=== PATIENT | male | born 1960 | race Caucasian/White ===

== ENCOUNTER 2017-08-19 17:23 | Emergency (ER) | payer BC ==
[2017-08-19 17:37] VITALS: BP 113/73
[2017-08-19] MEDS ORDERED: Lidocaine 1% MPF* 2 ML VIAL INJ ONE (17:45)
--- NOTE | 2017-08-19 17:45 | UC ---
Head Injury HPI - HPI Summary HPI Summary: 57 y/o male presents to the urgent care c/o laceration on top of his head w/ a pry bar that landed on his head at 1430pm today. Pt reports he left the pry bar on top of a ladder and when he move it the pry bar fell on top of his head, abut 4 feet high. Pt denies LOC, SWENSON or dizziness. bleeding stopped w/ pressure, Pain is 2/10. Pt is UTD w/ his Tetanus vaccine. Pt denies fever, SOB, chest pain, abdominal pain, N/V/D. - History Of Current Complaint Chief Complaint: UCLaceration Stated Complaint: HEAD INJURY Time Seen by Provider: 08/19/17 17:31 Hx Obtained From: Patient Onset/Duration: Sudden Onset, Lasting Hours - 3hrs ago Severity Currently: Mild Severity Initially: Moderate Pain Intensity: 2 Pain Scale Used: 0-10 Numeric Character: Sharp Aggravating Factor(s): Other - touch Alleviating Factor(s): Nothing Associated Signs And Symptoms: Positive: Negative. Negative: LOC (Time In Secs. /Mins/Hrs), LOC Duration Unknown, Confusion, Memory Loss, Seizure, Epistaxis, Dental Malocclusion, Neck Pain, Nausea, Vomiting - Risk Factors SDH Risk Factor: Negative - Allergies/Home Medications Allergies/Adverse Reactions: Allergies Allergy/AdvReac Type Severity Reaction Status Date / Time No Known Allergies Allergy Verified 08/19/17 17:29 PMH/Surg Hx/FS Hx/Imm Hx Previously Healthy: Yes Endocrine History: Hypothyroidism GI/ History: Gastroesophageal Reflux Other History Of: Negative For: HIV, Hepatitis B, Hepatitis C, Anticoagulant Therapy - Surgical History Surgical History: Yes Surgery Procedure, Year, and Place: thyroidectomy - Family History Known Family History: Negative: Cardiac Disease, Hypertension - Social History Occupation: Employed Full-time Lives: With Family Alcohol Use: Weekly Substance Use Type: None Smoking Status (MU): Never Smoked Tobacco - Immunization History Most Recent Tetanus Shot: UTD Review of Systems Constitutional: Negative Skin: Other - laceration of top of his head s/p head injuryw/ a pry bar Eyes: Negative ENT: Negative Respiratory: Negative Cardiovascular: Negative Gastrointestinal: Negative Genitourinary: Negative Motor: Negative Neurovascular: Negative Musculoskeletal: Negative Neurological: Negative Psychological: Negative Is Patient Immunocompromised?: No All Other Systems Reviewed And Are Negative: Yes Physical Exam - Summary Physical Exam Summary: Vital Signs Reviewed: Yes General: well developed, well nourished male sitting in the examining table w/o any apparent distress Eye Exam: Normal Head: Positive surface trauma, Tender to touch, no bony step off w/ superficial laceration at the mid top scalp Eyes: Positive: Conjunctiva Clear - PERRLA, EOMI, fundi grossly normal ENT: Positive: Normal ENT inspection, Hearing grossly normal, Pharynx normal, TMs normal. Neck: Positive: Supple, Nontender, No Lymphadenopathy Respiratory: Positive: Chest non-tender, Lungs clear, Normal breath sounds, No respiratory distress Cardiovascular: Positive: RRR, No Murmur, Pulses Normal, Brisk Capillary Refill Abdomen Description: Positive: Nontender, No Organomegaly, Soft. Negative: CVA Tenderness (R), CVA Tenderness (L) Bowel Sounds: Positive: Present Musculoskeletal: Positive: Strength Intact, ROM Intact, No Edema Neurological: Positive: Alert, Muscle Tone Normal Psychological Exam: Normal Skin: Positive:mid tp of scalp w/ a linear superficial laceration about 3.0cm in size, bleeding, no foreign body observed. mild tenderness to palpation, no ecchymosis or swelling observed. FROM of Head, sensation intact, capillary refill brisk, and pulses WNL. Triage Information Reviewed: Yes Vital Signs: Initial Vital Signs Temp 97.5 F 08/19/17 17:30 Pulse 72 08/19/17 17:30 Resp 16 08/19/17 17:30 BP 113/73 08/19/17 17:30 Pulse Ox 97 08/19/17 17:30 Procedures - Laceration/Wound Repair 1 Location: head - top of mid scalp Description: Linear Anesthesia: Local, 1.0% - 2ml Betadine Prep?: Yes - 3X Laceration/Wound Explored: clean, no foreign body removed Closure: Single Layer Suture Type: Nylon - 5.0 Number of Sutures: 6 Layer Closure?: Yes Sterile Dressing Applied?: Yes Head Injury Course/Dx - Course Course Of Treatment: 57 y/o male presents to the urgent care c/o laceration on top of his head w/ a pry bar that landed on his head at 1430pm today. Pt reports he left the pry bar on top of a ladder and when he move it the pry bar fell on top of his head, abut 4 feet high. Pt denies LOC, SWENSON or dizziness. bleeding stopped w/ pressure, Pain is 2/10. Pt is UTD w/ his Tetanus vaccine. Pt denies fever, SOB, chest pain, abdominal pain, N/V/D. Hx obtained. Pt w/ mid top of scalp w/ a linear superficial laceration about 3.0cm in size, bleeding, no foreign body observed. mild tenderness to palpation, no ecchymosis or swelling observed. FROM of Head on examination. LACERATION PROCEDURE NOTE: . Copious irrigation was done with saline by the nurse and the wound explored. There was no FB or deep structure injury noted. FROM of left forearm. procedure was explained and consent obtained, Timeout performed. The wound was anesthetized with 2 mL of 2% lido/epi with good anesthesia. Sterile drape and prep were don. There were 16 sutures with 5.0 nylon type of suture. The length of the wound after closure was 3.0cm. No debridement done. Wound was covered bacitracin with sterile non adherent dressing. The Pt tolerated the procedure well without adverse effects. Neurovascular intact and FROM. Pt is UTD w/ Tdap. Pt advised to f/u suture removal in 7-10 days and if any signs of infection develop to immediately return to the urgent care of PCP for further management and treatment. Pt understood and agreed and left the clinic ambulating A&Ox3. - Differential Dx/Diagnosis Differential Diagnosis/HQI/PQRI: Contusion, Hematoma, Laceration, Skull Fracture Provider Diagnoses: 1- Scalp laceration repair s/p head injury Discharge - Sign-Out/Discharge Documenting (check all that apply): Discharge/Admit/Transfer - D/c home - Discharge Plan Condition: Stable Disposition: HOME Prescriptions: Bacitracin OINTMENT* 1 applic TOPICAL BID #1 tube Patient Education Materials: Care For Your Stitches (ED), Laceration (ED) Referrals: Darryl Alvarenga MD [Primary Care Provider] - Additional Instructions: 1-Please apply topical antibiotic over the wound. Keep wound clean and dry 2- F/u suture removal in 7-10 days days w/ your PCP or here at the urgent care. 3-Take Ibuprofen or Tylenol PO q6-8hrs prn for pain or swelling. 4- If you develop fever or redness around your wound please return to the Urgent care or your PCP for further treatment - Billing Disposition and Condition Condition: STABLE Disposition: Home
[2017-08-19] MEDS ORDERED: Lidocaine 1%* 5 ML VIAL ONE (17:51)
== END 2017-08-19 18:39 | disposition home or self-care (01) ==
LOC: UCEAST 17:23
DX: S01.01XA Laceration without foreign body of scalp, initial encounter (principal); W20.8XXA Other cause of strike by thrown, projected or falling object, initial encounter; Y93.89 Activity, other specified; Y92.9 Unspecified place or not applicable; E03.9 Hypothyroidism, unspecified; K21.9 Gastro-esophageal reflux disease without esophagitis
CPT/HCPCS: 12002; 99212; G0463

== ENCOUNTER 2017-08-28 07:06 | Emergency (ER) | payer BC ==
[2017-08-28 07:14] VITALS: BP 113/67
--- NOTE | 2017-08-28 15:55 | UC ---
Fredo Berman Angela, scribed for Yehuda Kenny MD on 08/28/17 at 0717 . HPI Wound/Suture Re-check - HPI Summary HPI Summary: This pt is a 57 y/o male presenting to [facility] for suture removals. Pt reports he sustained a laceration to the top of his head 9 days ago s/p an injury. He came to Urgent Care and had 6 sutures placed on top of his head. Pt denies any complaints. Denies fever, chills, pain, headache, redness, swelling. - History Of Current Complaint Chief Complaint: UCGeneralIllness Stated Complaint: SUTURE REMOVAL Hx Obtained From: Patient Onset/Duration: Lasting Days, Still Present Surgical Site: on top of head Pain Intensity: 0 - no pain Pain Scale Used: 0-10 Numeric Procedure Type: 6 sutures placed - Allergies/Home Medications Allergies/Adverse Reactions: Allergies Allergy/AdvReac Type Severity Reaction Status Date / Time No Known Allergies Allergy Verified 08/28/17 07:15 PMH/Surg Hx/FS Hx/Imm Hx Endocrine History: Hypothyroidism Other Cardiovascular History: NEG: HTN Other Respiratory History: NEG: COPD Other History Of: Negative For: HIV, Hepatitis B, Hepatitis C, Anticoagulant Therapy - Surgical History Surgical History: Yes Surgery Procedure, Year, and Place: thyroidectomy - Family History Known Family History: Negative: Cardiac Disease, Hypertension - Social History Alcohol Use: Weekly Substance Use Type: None Smoking Status (MU): Never Smoked Tobacco - Immunization History Most Recent Tetanus Shot: UTD Review of Systems Constitutional: Negative Skin: Other - sutures on head Eyes: Negative ENT: Negative Respiratory: Negative Cardiovascular: Negative Gastrointestinal: Negative Genitourinary: Negative Motor: Negative Neurovascular: Negative Musculoskeletal: Negative Neurological: Negative Psychological: Negative All Other Systems Reviewed And Are Negative: Yes Physical Exam - Summary Physical Exam Summary: VITAL SIGNS: Reviewed. GENERAL: Patient is a well-developed and nourished male who is lying comfortable in the stretcher. Patient is not in any acute respiratory distress. HEAD AND FACE: Normocephalic. Six sutures on top of the head. Sutures were removed. Wound is clean, intact, and is healing well. EYES: PERRLA, EOMI x 2. EARS: Hearing grossly intact. MOUTH: Oropharynx within normal limits. NECK: Supple, trachea is midline, no adenopathy, no JVD, no carotid bruit. CHEST: Symmetric, no tenderness at palpation LUNGS: Clear to auscultation bilaterally. No wheezing or crackles. CVS: Regular rate and rhythm, S1 and S2 present, no murmurs or gallops appreciated. ABDOMEN: Soft, non-tender. Bowel sounds are normal. No abdominal abnormal pulsations. EXTREMITIES: Full ROM in all major joints, no edema, no cyanosis or clubbing. NEURO: Alert and oriented x 3. No acute neurological deficits. Speech is normal and follows commands. SKIN: Dry and warm Triage Information Reviewed: Yes Vital Signs: Initial Vital Signs Temp 97.2 F 08/28/17 07:08 Pulse 96 08/28/17 07:08 Resp 53 08/28/17 07:08 BP 113/67 08/28/17 07:08 Pulse Ox 96 08/28/17 07:08 Vital Signs Reviewed: Yes Course/Dx - Course Course Of Treatment: This pt is a 57 y/o male presenting to [facility] for suture removals. Pt reports he sustained a laceration to the top of his head 9 days ago s/p an injury. He came to Urgent Care and had 6 sutures placed on top of his head. Pt denies any complaints. Denies fever, chills, pain, headache, redness, swelling. Pt has 6 sutures on top of his head. Sutures were removed successfully. Pt tolerated suture removal well. Wound is clean, intact, and is healing well. Pt was instructed to return to the urgent care or go to ER immediately if any of the symptoms return or worsens. Plan of care was discussed with the patient and pt understands and agrees. All questions were answered to patient satisfaction. There were no further complaints or concerns. Pt will be discharged to home with follow up from PCP. Pt is hemodynamically stable, alert and oriented x3. - Differential Dx - Laceration/Wound Provider Diagnoses: Suture removal Discharge - Sign-Out/Discharge Documenting (check all that apply): Discharge/Admit/Transfer - Discharge - Discharge Plan Condition: Stable Disposition: HOME Patient Education Materials: Stitches Removal (ED) Referrals: Darryl Alvarenga MD [Primary Care Provider] - Additional Instructions: f/u with PCP as needed The documentation as recorded by the Fredo gustafson Angela accurately reflects the service I personally performed and the decisions made by Efraín chirinos Walter, MD.
== END 2017-08-28 07:20 | disposition home or self-care (01) ==
LOC: UCEAST 07:06
DX: S01.01XD Laceration without foreign body of scalp, subsequent encounter (principal); X58.XXXD Exposure to other specified factors, subsequent encounter; E03.9 Hypothyroidism, unspecified
CPT/HCPCS: 99211; G0463

== ENCOUNTER 2018-02-08 05:49 | Emergency (ER) | payer BC ==
--- NOTE | 2018-02-08 06:09 | ED ---
HPI Chest Pain - History of Current Complaint Chief Complaint: EDChestPainROMI Time Seen by Provider: 02/08/18 06:04 Hx Obtained From: Patient Onset/Duration: Started Days Ago - 1 Initial Severity: Mild Current Severity: Mild Pain Intensity: 2 Pain Scale Used: 0-10 Numeric - Allergy/Home Medications Allergies/Adverse Reactions: Allergies Allergy/AdvReac Type Severity Reaction Status Date / Time No Known Allergies Allergy Verified 02/08/18 06:01 PMH/Surg Hx/FS Hx/Imm Hx Endocrine/Hematology History: Reports: Hx Thyroid Disease - hypo Denies: Hx Anticoagulant Therapy, Hx Diabetes Cardiovascular History: Denies: Hx Congestive Heart Failure, Hx Deep Vein Thrombosis, Hx Hypertension , Hx Myocardial Infarction, Hx Pacemaker/ICD Respiratory History: Denies: Hx Asthma, Hx Chronic Obstructive Pulmonary Disease (COPD), Hx Lung Cancer, Hx Pneumonia, Hx Pulmonary Embolism GI History: Denies: Hx Gall Bladder Disease, Hx Gastrointestinal Bleed, Hx Ulcer, Hx Urosepsis History: Denies: Hx Kidney Stones, Hx Renal Disease Neurological History: Denies: Hx Dementia, Hx Migraine, Hx Seizures, Hx Transient Ischemic Attacks (TIA) Psychiatric History: Denies: Hx Anxiety, Hx Depression, Hx Schizophrenia, Hx Bipolar Disorder - Surgical History Surgery Procedure, Year, and Place: thyroidectomy Infectious Disease History: No Infectious Disease History: Denies: Hx Hepatitis, Hx of Known/Suspected MRSA, Traveled Outside the [place] in Last 30 Days - Family History Known Family History: Negative: Cardiac Disease, Hypertension - Social History Alcohol Use: Weekly Substance Use Type: Reports: None Smoking Status (MU): Never Smoked Tobacco Review of Systems Positive: Skin Diaphoresis Positive: Chest Pain - left sided Physical Exam Vital Signs On Initial Exam: Initial Vitals Temp Pulse Resp BP Pulse Ox 98.3 F 79 16 137/86 97 02/08/18 05:58 02/08/18 05:58 02/08/18 05:58 02/08/18 05:58 02/08/18 05:58 Diagnostics - Vital Signs Vital Signs Temp Pulse Resp BP Pulse Ox 02/08/18 05:58 98.3 F 79 16 137/86 97 - Laboratory Lab Statement: Any lab studies that have been ordered have been reviewed, and results considered in the medical decision making process. - EKG 05:54 Cardiac Rate: NL - 70 bpm EKG Rhythm: Sinus Rhythm Summary of EKG Findings: P waves, QRS complex, and T waves are within normal limits, T waves and intervals are normal, no ischemic changes. Discharge - Discharge Plan Referrals: Darryl Alvarenga MD [Primary Care Provider] - - Attestation Statements Document Initiated by Scribe: Yes Documenting Scribe: Ilia Tovar Provider For Whom Scribe is Documenting (Include Credential): Ruddy Mcmanus MD Scribe Attestation: IIlia, scribed for Ruddy Mcmanus MD on 02/08/18 at 0608.
--- NOTE | 2018-02-08 06:27 | ED ---
HPI Chest Pain - HPI Summary HPI Summary: Patient presents with persistent left-sided chest soreness since yesterday at 10 :30 AM. He reports he had 2 cups of coffee in the morning (1 cup more than he usually drinks) and went out to shovel the driveway. About an hour so later while he was sitting at his computer desk when he developed a sharp cramping sensation in his left chest area under his breast. He reports this lasted about 20 seconds and has not returned since. He does have a residual soreness here however that's about a 2 out of 10 pain. This pain can be made worse with palpation and with moving his Lt arm across his chest. Denies associated symptoms of shortness of breath, dizziness, jaw pain, arm pain, diaphoresis, nausea/vomiting, fatigue. He does report however last night he got anxious about the chest discomfort and had a sweaty palm episode that was brief. He checked his HR 2 x , measuring in 60's and 70's. He reports he ate 2 oranges as the sweating anxious feeling sometimes happens when his sugar is low. He then went to bed and other than worrying about his chest sx, he slept for 5 hours without difficulty. Prior to going to bed, he also admits he took 2 aspirin at 1800 and another aspirin at 2200. No change in symptoms and no new symptoms. He simply woke up this morning and still has left-sided soreness of his chest so decided to come in to get checked out. Denies risk factors such as smoking, hypertension, high cholesterol, DM, high stress, inactivity, obesity, strong family history although he admits a couple of uncles on his mom's side of the family had heart attacks in their late 50s or early 60s. He is active in that he has stairs in his house, carries out lawn work/ house work and walks at his job. Additionally, he admits he's had some neck soreness lately from a new truck that does not handle bumps well. Has baseline arthritis here but is managing his sx. Also has h/o GERD - takes omeprazole daily. Does admit he drank curdled milk yesterday before shoveling - has had some GI discomfort since with increased gas but no fermin ab pain, nausea, vomiting, diarrhea. Denies recent trauma, leg swelling, h/o cancer, travel. May be dehydrated as he states he doesn't drink as much water as he should. - History of Current Complaint Chief Complaint: EDChestPainROMI Time Seen by Provider: 02/08/18 06:04 Hx Obtained From: Patient Pain Intensity: 2 - Allergy/Home Medications Allergies/Adverse Reactions: Allergies Allergy/AdvReac Type Severity Reaction Status Date / Time No Known Allergies Allergy Verified 02/08/18 06:01 PMH/Surg Hx/FS Hx/Imm Hx Previously Healthy: Yes Endocrine/Hematology History: Reports: Hx Thyroid Disease - hypo Denies: Hx Anticoagulant Therapy, Hx Diabetes, Autoimmune Disease Cardiovascular History: Denies: Hx Aneurysm, Hx Atrial Fibrillation, Hx Cardiac Arrest, Hx Congestive Heart Failure, Hx Deep Vein Thrombosis, Hx Hypertension, Hx Myocardial Infarction, Hx Pacemaker/ICD Respiratory History: Denies: Hx Asthma, Hx Chronic Obstructive Pulmonary Disease (COPD), Hx Lung Cancer, Hx Pneumonia, Hx Pulmonary Embolism GI History: Reports: Hx Gastroesophageal Reflux Disease - takes PPI daily Denies: Hx Gall Bladder Disease, Hx Gastrointestinal Bleed, Hx Ulcer, Hx Urosepsis History: Denies: Hx Kidney Stones, Hx Renal Disease Musculoskeletal History: Reports: Hx Arthritis - cervical spine per pt Neurological History: Denies: Hx CVA, Hx Dementia, Hx Migraine, Hx Seizures, Hx Transient Ischemic Attacks (TIA) Psychiatric History: Denies: Hx Anxiety, Hx Depression, Hx Schizophrenia, Hx Bipolar Disorder - Surgical History Surgery Procedure, Year, and Place: thyroidectomy Infectious Disease History: No Infectious Disease History: Denies: Hx Hepatitis, Hx of Known/Suspected MRSA, Traveled Outside the [place] in Last 30 Days - Family History Known Family History: Negative: Cardiac Disease, Hypertension - Social History Occupation: Employed Full-time - electrical engineering draftsperson Lives: With Family - Alcohol Use: Weekly Hx Substance Use: No Substance Use Type: Reports: None Hx Tobacco Use: No Smoking Status (MU): Never Smoked Tobacco Review of Systems Constitutional: Negative Negative: Fever, Chills, Fatigue Eyes: Negative ENT: Negative Positive: Chest Pain. Negative: Palpitations Respiratory: Negative Gastrointestinal: Other - discomfort, increased gas as in HPI Genitourinary: Negative Positive: Arthralgia - cervical spine as in HPI Skin: Negative Neurological: Negative Positive: Anxious All Other Systems Reviewed And Are Negative: Yes Physical Exam Triage Information Reviewed: Yes Vital Signs On Initial Exam: Initial Vitals Temp Pulse Resp BP Pulse Ox 98.3 F 79 16 137/86 97 02/08/18 05:58 02/08/18 05:58 02/08/18 05:58 02/08/18 05:58 02/08/18 05:58 Vital Signs Reviewed: Yes Appearance: Positive: Well-Appearing, No Pain Distress, Well-Nourished Skin: Positive: Warm, Skin Color Reflects Adequate Perfusion, Dry - no erythema , no ecchymosis, no lesions over affected area Head/Face: Positive: Normal Head/Face Inspection Eyes: Positive: Normal, EOMI, KAYLA, Conjunctiva Clear ENT: Positive: Normal ENT inspection, Hearing grossly normal, Pharynx normal - mucosa moist Neck: Positive: Supple, Nontender Respiratory/Lung Sounds: Positive: Clear to Auscultation, Breath Sounds Present. Negative: Rales, Rhonchi, Wheezes Cardiovascular: Positive: Normal, RRR, Pulses are Symmetrical in both Upper and Lower Extremities, S1, S2. Negative: Leg Edema Left - (-) Haylie's B/L, Leg Edema Right Abdomen Description: Positive: Nontender, No Organomegaly, Soft, Guarding - epigastric region. Negative: Pulsatile Mass Bowel Sounds: Positive: Present Musculoskeletal: Positive: Strength/ROM Intact - mild reproduction of pain w/ aduction of Lt arm, Pain @ - Lt inferior border of pectoralis and ribs are TTP ( mild), Other - spine and paraspinal mm are NTTP Neurological: Positive: Normal, Sensory/Motor Intact, Alert, Oriented to Person Place, Time, CN Intact II-III Psychiatric: Positive: Anxious - concerned but pleasant, polite, cooperative Diagnostics - Vital Signs Vital Signs Temp Pulse Resp BP Pulse Ox 02/08/18 05:58 98.3 F 79 16 137/86 97 - Laboratory Result Diagrams: 02/08/18 06:33 02/08/18 06:33 Lab Statement: Any lab studies that have been ordered have been reviewed, and results considered in the medical decision making process. Chest Pain Course/Dx - Course Course Of Treatment: ECG: NSR, no ST elevations. Labs WNL. Improved w/ GI cocktail. F/u w/ PCP and will return to ED if sx return - Diagnoses Provider Diagnoses: Left-sided chest wall pain, GERD (gastroesophageal reflux disease) Discharge - Sign-Out/Discharge Documenting (check all that apply): Patient Departure - Discharge Plan Condition: Stable Disposition: HOME Patient Education Materials: Chest Wall Pain (ED), Gastroesophageal Reflux Disease (ED) Referrals: Darryl Alvarenga MD [Primary Care Provider] - Additional Instructions: You do not appear to have cardiac pathology as reviewed by labs and other tests here today in the emergency department. Is important that you follow up with your PCP next week to see how your symptoms are progressing. *If your symptoms worsen or return, return to the emergency department. Otherwise follow educational advice for chest wall pain/muscle strain and GERD which you appear to have here today. - Billing Disposition and Condition Condition: STABLE Disposition: Home
[2018-02-08 06:57] LABS: EGFR Non-African American 96.8 (>60)
[2018-02-08 07:04] LABS: INR 0.87 (0.77-1.02)
[2018-02-08 07:09] LABS: ABS Basophils 0 10^3/ul (0-0.2); ABS Eosinophils 0.1 10^3/ul (0-0.6); ABS Lymphocytes 1.4 10^3/ul (1.0-4.8); ABS Monocytes 0.5 10^3/ul (0-0.8); ABS Neutrophils 2.9 10^3/ul (1.5-7.7); ABS Nucleated RBC 0 10^3/ul; Eosinophil % 1.2 %; Hematocrit 45 % (42-52); Hemoglobin 15.7 g/dl (14.0-18.0); Lymphocyte % 28.3 %; Mean Corpuscular HGB Conc 35 g/dl (31-36); Mean Corpuscular Hemoglobin 32 pg (27-31); Mean Corpuscular Volume 92 fL (80-94); Mean Platelet Volume 9.6 fL (7.4-10.4); Nucleated Red Blood Cells % 0.2; Platelet Count 181 10^3/ul (150-450); Red Blood Count 4.85 10^6/ul (4.00-5.40); Red Cell Distribution Width 13 % (10.5-15); White Blood Count 4.9 10^3/ul (3.5-10.8)
[2018-02-08] MEDS ORDERED: Al Hydrox/Mg Hydrox/Simet LIQ* 30 ML UDC PO ONE (08:15)
[2018-02-08] MEDS ORDERED: Lidocaine 2% VISCOUS* 15 ML UDC PO ONE (08:15)
[2018-02-08 10:30] VITALS: BP 149/104
== END 2018-02-08 10:29 | disposition home or self-care (01) ==
LOC: ED 05:49
DX: R07.89 Other chest pain (principal); K21.9 Gastro-esophageal reflux disease without esophagitis; E03.9 Hypothyroidism, unspecified
CPT/HCPCS: 36415; 71045; 80053; 83605; 83735; 84443; 84484; 85025; 85379; 85610; 85730; 93005; 99283; A9270-GY

== ENCOUNTER 2018-06-01 09:17 | Emergency (ER) | payer BC ==
[2018-06-01] MEDS ORDERED: NS 0.9% 1000 ML** 1,000 ML IV ONE (09:43)
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
[2018-06-01 10:07] LABS: ABS Basophils 0 10^3/ul (0-0.2); ABS Eosinophils 0.1 10^3/ul (0-0.6); ABS Monocytes 0.6 10^3/ul (0-0.8); ABS Neutrophils 2.8 10^3/ul (1.5-7.7); ABS Nucleated RBC 0 10^3/ul; Eosinophil % 1.5 %; Hematocrit 47 % (36-46); Hemoglobin 16.2 g/dL (14.0-18.0); Lymphocyte % 36.4 %; Mean Corpuscular HGB Conc 35 g/dL (31-36); Mean Corpuscular Hemoglobin 32 pg (27-31); Mean Corpuscular Volume 92 fL (80-94); Mean Platelet Volume 9.4 fL (7.4-10.4); Nucleated Red Blood Cells % 0.2; Platelet Count 169 10^3/uL (150-450); Red Blood Count 5.09 10^6 /uL (4.18-5.48); Red Cell Distribution Width 13 % (10.5-15); White Blood Count 5.6 10^3/uL (3.5-10.8)
[2018-06-01 10:23] LABS: Activated Partial Thrombo Time 30.4 seconds (26.0-36.3); INR 0.88 (0.77-1.02)
[2018-06-01 10:24] LABS: Albumin 4.5 g/dL (3.2-5.2); Albumin/Globulin Ratio 1.6 (1-3); BUN/Creatinine Ratio 24.2 (8-20); EGFR African American 103.5 (>60); EGFR Non-African American 85.6 (>60); Globulin 2.8 g/dL (2-4); Total Bilirubin 0.7 mg/dL (0.2-1.0); Total Protein 7.3 g/dL (6.4-8.9)
[2018-06-01] MEDS ORDERED: Iohexol 350* (CONTRAST) 500 ML MDV IV ONE (10:58)
[2018-06-01 12:40] VITALS: BP 116/67
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
== END 2018-06-01 12:41 | disposition home or self-care (01) ==
LOC: ED 09:17
DX: M62.838 Other muscle spasm (principal); R20.0 Anesthesia of skin; M50.30 Other cervical disc degeneration, unspecified cervical region; M47.812 Spondylosis without myelopathy or radiculopathy, cervical region; E03.9 Hypothyroidism, unspecified; K21.9 Gastro-esophageal reflux disease without esophagitis
CPT/HCPCS: 36415; 70450; 71045; 72125; 80053; 82607; 83605; 84484; 85025; 85610; 85730; 93005; 96360; 99283